=== PATIENT | male | born 1965 | race Caucasian/White ===

== ENCOUNTER 2024-03-02 10:38 | Observation (INO) | payer OTHER ==
--- NOTE | 2024-03-02 11:11 | ED ---
General Adult HPI - General Chief complaint: Syncope Stated complaint: Fall/Face injury/lac Time Seen by Provider: 03/02/24 10:40 Source: patient Mode of arrival: EMS Limitations: no limitations - History of Present Illness Initial comments: Dictation was produced using [employer] dictation software. please excuse any grammatical, word or spelling errors. Chief Complaint: 58-year-old male with syncope and fall History of Present Illness: Patient 58-year-old male he has been having significant coughing for the last few days. Patient states that he sat up on the side of the bed when he started coughing profusely. Shortly after he wakes up on the floor. at the bedside states that he passed out for several seconds. He was alert immediately after the syncopal event. Patient complaining of some mild facial and neck pain. Patient does not take any anticoagulation medications. He allegedly has cardiac history where he had to see pick pulling machine tender after what he describes as complications from COVID-19 vaccine. The ROS documented in this emergency department record has been reviewed and confirmed by me. Those systems with pertinent positive or negative responses have been documented in the HPI. All other systems are other negative and/or noncontributory. - Related Data Allergies Allergy/AdvReac Type Severity Reaction Status Date / Time No Known Allergies Allergy Verified 03/02/24 10:44 Review of Systems ROS Statement: Those systems with pertinent positive or pertinent negative responses have been documented in the HPI. ROS Other: All systems not noted in ROS Statement are negative. Past Medical History Past Medical History: Hyperlipidemia, Hypertension History of Any Multi-Drug Resistant Organisms: None Reported Additional Past Surgical History / Comment(s): Jaw Past Psychological History: No Psychological Hx Reported Smoking Status: Never smoker Past Alcohol Use History: Occasional Past Drug Use History: None Reported General Exam - General Exam Comments Initial Comments: PHYSICAL EXAM: General Impression: Alert and oriented x3, not in acute distress HEENT: Abrasions to the face and nose, extra-ocular movements intact, pupils equal and reactive to light bilaterally, mucous membranes moist. Cardiovascular: Heart regular rate and rhythm Chest: Able to complete full sentences, no retractions, no tachypnea Abdomen: abdomen soft, non-tender, non-distended, no organomegaly Musculoskeletal: Pulses present and equal in all extremities, no peripheral edema Motor: no focal deficits noted Neurological: CN II-XII grossly intact, no focal motor or sensory deficits noted Skin: Intact with no visualized rashes Psych: Normal affect and mood Limitations: no limitations Course Vital Signs 03/02/24 03/02/24 03/02/24 10:40 12:00 13:00 Temperature 98 F 97.6 F Pulse Rate 64 66 73 Respiratory 20 18 18 Rate Blood Pressure 153/98 154/88 122/86 O2 Sat by Pulse 97 98 97 Oximetry 03/02/24 13:35 Temperature Pulse Rate 72 Respiratory 18 Rate Blood Pressure 149/93 O2 Sat by Pulse 97 Oximetry EKG Findings - EKG Comments: EKG Findings:: My EKG interpretation: Ventricular rate 65, sinus rhythm,. 171, QRS 99, QTc 447. No VT prolongation, no QTC prolongation, no ST or T-wave changes noted. E Overall, this EKG is unremarkable Medical Decision Making - Medical Decision Making Was pt. sent in by a medical professional or institution (, PA, SHOWER ATTENDANT, urgent care, hospital, or residential...) When possible be specific @ -No Did you speak to anyone other than the patient for history (EMS, parent, family, police, friend...)? What history was obtained from this source @ -Some history obtained from at the bedside as described above Did you review nursing and triage notes (agree or disagree)? Why? @ -I reviewed and agree with nursing and triage notes Were old charts reviewed (outside hosp., previous admission, EMS record, old EKG, old radiological studies, urgent care reports/EKG's, residential records)? Report findings @ -No old charts were reviewed Differential Diagnosis (chest pain, altered mental status, abdominal pain women, abdominal pain men, vaginal bleeding, musculoskeletal, weakness, fever, dyspnea, syncope, headache, dizziness, GI bleed, back pain, seizure, CVA, palpatations, mental health)? @ -Differential Syncope: Valvular disease, hypertrophic cardiomyopathy, pulmonary embolism, tamponade, tachycardia, bradycardia, DE, hypovolemia, hemorrhage, dissection, anemia, intracranial hemorrhage, seizure, hypoglycemia, carbon monoxide poisoning, this is not meant to be an all-inclusive list. EKG interpreted by me (3pts min.). @ -See above X-rays interpreted by me (1pt min.). @ -Chest x-ray shows no acute processes CT interpreted by me (1pt min.). @ -CT face shows fractured nasal bones. CT head shows no acute processes. CT cervical spine shows anterior and inferior endplate fractures of C6 vertebral body U/S interpreted by me (1pt. min.). @ -None done What testing was considered but not performed or refused? (CT, X-rays, U/S, labs)? Why? @ -None What meds were considered but not given or refused? Why? @ -None Was smoking cessation discussed for >3mins.? @ -No Were there social determinants of health that impacted care today? How? (Homeles sness, low income, unemployed, alcoholism, drug addiction, transportation, low edu. Level, literacy, decrease access to med. care, detention, rehab)? @ -No Was there de-escalation of care discussed even if they declined (Discuss DNR or withdrawal of care, Hospice)? DNR status @ -No What co-morbidities impacted this encounter? (DM, HTN, Smoking, COPD, CAD, Cancer, CVA, ARF, Chemo, Hep., AIDS, mental health diagnosis, sleep apnea, morbid obesity)? @ -None Was patient admitted / discharged? Hospital course, mention meds given and route, prescriptions, significant lab abnormalities, going to OR and other pertinent info. @ -58-year-old male presents to the emergency department after multiple synco pal episodes. He has been having URI type symptoms for the last week. Vital signs upon arrival shows findings within acceptable limits he is afebrile. No obvious cardiac abnormalities for the patient patient seems to have syncopal episodes after coughing. Laboratory evaluation is unremarkable. CBC, coag panel metabolic panel is unremarkable. Viral testing shows flu a positive. Patient outside the window for Tamiflu administration due to symptoms for approximately 7 days. Imaging studies obtained showing vertebral fracture. Case discussed with Dr. Peterson recommends [place] J collar. Patient be admitted for syncope. Orthopedic surgery been consulted. Did you discuss the management of the patient with other professionals (professionals i.e. , PA, SHOWER ATTENDANT, lab, RT, psych nurse, director of social services, ag equipment field service technician, teacher, national insurance officer, machine adjuster leader case trim)? Give summary @ -See above. Case discussed with hospitalist for admission Was critical care preformed (if so, how long)? @ -No Undiagnosed new problem with uncertain prognosis? @ -No Drug Therapy requiring intensive monitoring for toxicity (Heparin, Nitro, Insulin, Cardizem)? @ -No Were any procedures done? @ -No Diagnosis/symptom? Acute, or Chronic, or Acute on Chronic? Uncomplicated (without systemic symptoms) or Complicated (systemic symptoms)? @ -Syncope, cervical fracture Side effects of treatment? @ -No Exacerbation, Progression, or Severe Exacerbation? @ -No Poses a threat to life or bodily function? How? (Chest pain, USA, DE, pneumonia, PE, COPD, DKA, ARF, appy, cholecystitis, CVA, Diverticulitis, Homicidal, Suici mik, threat to staff... and all critical care pts) @ -yes - Lab Data Result diagrams: 03/02/24 11:23 03/02/24 11:23 Lab Results 03/02/24 03/02/24 03/02/24 Range/Units 11:23 11:23 11:23 WBC 8.5 (3.8-10.6) k/uL RBC 5.13 (4.30-5.90) m/uL Hgb 15.1 (13.0-17.5) gm/dL Hct 44.7 (39.0-53.0) % MCV 87.2 (80.0-100.0) fL MCH 29.5 (25.0-35.0) pg MCHC 33.8 (31.0-37.0) g/dL RDW 13.2 (11.5-15.5) % Plt Count 141 L (150-450) k/uL MPV 9.3 Neutrophils % 85 % Lymphocytes % 9 % Monocytes % 3 % Eosinophils % 2 % Basophils % 0 % Neutrophils # 7.2 (1.3-7.7) k/uL Lymphocytes # 0.8 L (1.0-4.8) k/uL Monocytes # 0.3 (0-1.0) k/uL Eosinophils # 0.1 (0-0.7) k/uL Basophils # 0.0 (0-0.2) k/uL PT 11.9 (10.0-12.5) sec INR 1.1 (<1.2) APTT 22.1 (22.0-30.0) sec Sodium 139 (137-145) mmol/L Potassium 4.3 (3.5-5.1) mmol/L Chloride 104 (98-107) mmol/L Carbon Dioxide 31 H (22-30) mmol/L Anion Gap 4 mmol/L BUN 19 (9-20) mg/dL Creatinine 1.10 (0.66-1.25) mg/dL Est GFR (CKD-EPI)AfAm 84 (>60 ml/min/1.73 sqM) Est GFR (CKD-EPI)NonAf 73 (>60 ml/min/1.73 sqM) Glucose 112 H (74-99) mg/dL Plasma Lactic Acid Bill (0.7-2.0) mmol/L Calcium 8.3 L (8.4-10.2) mg/dL Magnesium 2.2 (1.6-2.3) mg/dL Total Bilirubin 0.6 (0.2-1.3) mg/dL AST 33 (17-59) U/L ALT 47 (4-49) U/L Alkaline Phosphatase 75 (38-126) U/L Troponin I (0.000-0.034) ng/mL Total Protein 6.4 (6.3-8.2) g/dL Albumin 4.1 (3.5-5.0) g/dL Influenza Type A (PCR) (Not Detectd) Influenza Type B (PCR) (Not Detectd) RSV (PCR) (Not Detectd) SARS-CoV-2 (PCR) (Not Detectd) 03/02/24 03/02/24 03/02/24 Range/Units 11:23 11:23 12:15 WBC (3.8-10.6) k/uL RBC (4.30-5.90) m/uL Hgb (13.0-17.5) gm/dL Hct (39.0-53.0) % MCV (80.0-100.0) fL MCH (25.0-35.0) pg MCHC (31.0-37.0) g/dL RDW (11.5-15.5) % Plt Count (150-450) k/uL MPV Neutrophils % % Lymphocytes % % Monocytes % % Eosinophils % % Basophils % % Neutrophils # (1.3-7.7) k/uL Lymphocytes # (1.0-4.8) k/uL Monocytes # (0-1.0) k/uL Eosinophils # (0-0.7) k/uL Basophils # (0-0.2) k/uL PT (10.0-12.5) sec INR (<1.2) APTT (22.0-30.0) sec Sodium (137-145) mmol/L Potassium (3.5-5.1) mmol/L Chloride (98-107) mmol/L Carbon Dioxide (22-30) mmol/L Anion Gap mmol/L BUN (9-20) mg/dL Creatinine (0.66-1.25) mg/dL Est GFR (CKD-EPI)AfAm (>60 ml/min/1.73 sqM) Est GFR (CKD-EPI)NonAf (>60 ml/min/1.73 sqM) Glucose (74-99) mg/dL Plasma Lactic Acid Bill 1.4 (0.7-2.0) mmol/L Calcium (8.4-10.2) mg/dL Magnesium (1.6-2.3) mg/dL Total Bilirubin (0.2-1.3) mg/dL AST (17-59) U/L ALT (4-49) U/L Alkaline Phosphatase (38-126) U/L Troponin I <0.012 (0.000-0.034) ng/mL Total Protein (6.3-8.2) g/dL Albumin (3.5-5.0) g/dL Influenza Type A (PCR) Detected A (Not Detectd) Influenza Type B (PCR) Not Detected (Not Detectd) RSV (PCR) Not Detected (Not Detectd) SARS-CoV-2 (PCR) Not Detected (Not Detectd) Disposition Clinical Impression: Cervical spine fracture, Syncope Disposition: ADMITTED IP TO THIS [facility] Condition: Fair Referrals: Nonstaff,Physician [REFERRING] - 1-2 days Decision Time: 15:28
[2024-03-02 11:48] LABS: Basophils % (A) 0 %; Eosinophils # (A) 0.1 k/uL (0-0.7); Eosinophils % (A) 2 %; HCT 44.7 % (39.0-53.0); HGB 15.1 gm/dL (13.0-17.5); Lymphocytes # (A) 0.8 k/uL (1.0-4.8); Lymphocytes % (A) 9 %; MCH 29.5 pg (25.0-35.0); MCHC 33.8 g/dL (31.0-37.0); MCV 87.2 fL (80.0-100.0); Mean Platelet Volume 9.3; Monocytes # (A) 0.3 k/uL (0-1.0); Monocytes % (A) 3 %; Neutrophils # (A) 7.2 k/uL (1.3-7.7); Neutrophils % (A) 85 %; Platelet Count 141 k/uL (150-450); RBC 5.13 m/uL (4.30-5.90); RDW 13.2 % (11.5-15.5); WBC 8.5 k/uL (3.8-10.6)
[2024-03-02 12:03] LABS: ALT 47 U/L (4-49); AST 33 U/L (17-59); African American GFR (CKD) 84 (>60 ml/min/1.73 sqM); Albumin 4.1 g/dL (3.5-5.0); Alkaline Phosphatase 75 U/L (38-126); Anion Gap 4 mmol/L; Blood Urea Nitrogen 19 mg/dL (9-20); Calcium 8.3 mg/dL (8.4-10.2); Carbon Dioxide 31 mmol/L (22-30); Chloride 104 mmol/L (98-107); Glucose 112 mg/dL (74-99); Magnesium 2.2 mg/dL (1.6-2.3); Non-African American GFR(CKD) 73 (>60 ml/min/1.73 sqM); Potassium 4.3 mmol/L (3.5-5.1); Sodium 139 mmol/L (137-145); Total Bilirubin 0.6 mg/dL (0.2-1.3); Total Protein 6.4 g/dL (6.3-8.2)
[2024-03-02 12:04] LABS: INR 1.1 (<1.2); Partial Thromboplastin Time 22.1 sec (22.0-30.0); Prothrombin Time 11.9 sec (10.0-12.5)
--- NOTE | 2024-03-02 12:14 | CT ---
EXAMINATION TYPE: CT brain cspine wo con, CT facial bones wo con CT DLP: 749.2 (accession [id number]), 417.1 (accession [id number]) mGycm, Automated exposure control for dose reduction was used. DATE OF EXAM: 03/02/2024 12:01 PM COMPARISON: None. CLINICAL INDICATION:Male, 58 years old with history of fall; FALL, HEAD/NECK PAIN (accession [id number] ), FALL, NOSE PAIN (accession [id number]) TECHNIQUE: Brain: Multiple axial CT images of the brain were obtained without IV contrast. Cspine: Axial CT images from the skull base to the inferior aspect of T2 we obtained without intraven ous contrast. Coronal and sagittal reformatted images were also reviewed. Facial bones; axial CT images of the facial bones were obtained without contrast and soft tissue and bone windows. Coronal and sagittal reformatted images were also reviewed. FINDINGS: Brain: Extra-axial spaces: No abnormal extra-axial fluid collections. Ventricular system: Within normal limits Cerebral parenchyma: No acute intraparenchymal hemorrhage or mass effect. The meadows-white junction is well differentiated. Cerebellum: Unremarkable. Mass effect: No evidence of midline shift. Intracranial vasculature: unremarkable Soft tissues: Normal. Calvarium: No depressed skull fracture. Paranasal sinuses and mastoid air cells: Mucosal thickening of the bilateral maxillary sinuses. Visualized orbits: Orbital contents are intact. Cervical spine: Fracture: None. Osseous structures: Acute nondisplaced fracture involving the anterior inferior endplates of the C6 v ertebral body. Multilevel anterior osteophytosis. Vertebral alignment: Within normal limits. Spinal canal/Neural Foramina: Broad-based disc bulge at C3-C4 without significant effacement of the a nterior thecal sac. Broad-based disc bulge at C4-C5, C5-C6, and C6-C7 with mild effacement of the ant erior thecal sac. Facet joint uncovertebral joint arthropathy scattered throughout the cervical spine with varying degrees of neural foraminal stenosis. Neck soft tissues: Prevertebral soft tissues are within normal limits. Other: The airway is patent. The lung apices are clear. Facial Bones: Dental amalgam. Streak artifact which limits evaluation. Acute left nasal bone fracture with minimal displacement. There is surrounding soft tissue swelling with maxillary soft tissue laceration and gas . Nasal septal deviation to the right. The orbital contents are unremarkable. The temporal-mandibular joints appear symmetric. Minimal mucosal thickening in the bilateral maxillary sinuses. The remainin g paranasal sinuses are clear. IMPRESSION: 1. No acute intracranial process. 2. Acute nondisplaced fracture involving the anterior and inferior endplates at the C6 vertebral bod y. 3. Mild multilevel degenerative disc disease. 4. Acute minimally displaced left nasal bone fracture with surrounding soft tissue edema and maxilla ry soft tissue laceration. [facility], , 03/02/2024 12:11 PM
--- NOTE | 2024-03-02 12:16 | XR ---
EXAMINATION TYPE: XR pelvis AP view DATE OF EXAM: 03/02/2024 12:05 PM INDICATION: Patient age:Male; 58 years old; Reason for study: fall, syncope; PHH. COMPARISON: None TECHNIQUE: The pelvis was examined in a single projection. FINDINGS: There is no evidence of fracture or dislocation. There is no soft tissue abnormality. Pelv ic phleboliths are present. Multilevel degenerative changes of the lower spine. IMPRESSION: No acute osseous pathology. [facility], , 03/02/2024 12:13 PM
--- NOTE | 2024-03-02 12:16 | XR ---
EXAMINATION TYPE: XR chest 2V DATE OF EXAM: 03/02/2024 12:05 PM COMPARISON: None TECHNIQUE: XR chest 2V Frontal and lateral views of the chest. CLINICAL INDICATION:Male, 58 years old with history of fall, syncope; FINDINGS: Lungs/Pleura: There is no evidence of pleural effusion, focal consolidation, or pneumothorax. Pulmonary vascularity: Unremarkable. Heart/mediastinum: Cardiomediastinal silhouette is unremarkable. Musculoskeletal: No acute osseous pathology. IMPRESSION: No acute cardiopulmonary disease/process. [facility], , 03/02/2024 12:14 PM
[2024-03-02] MEDS ORDERED: ONDANSETRON 4 MG/2 ML VIAL IVP PRN (15:20)
[2024-03-02] MEDS ORDERED: NALOXONE 0.4 MG/ML 1 ML VIAL IV PRN (15:20)
[2024-03-02] MEDS: ACETAMINOPHEN TAB 325 MG TAB PO PRN (15:37)
[2024-03-02] MEDS: SODIUM CHLORIDE 0.9% 1,000 ML IV SCH (15:39)
--- NOTE | 2024-03-02 17:28 | P.HPIM ---
History of Present Illness H&P Date: 03/02/24 History of Presenting Illness: Patient is a very pleasant 58-year-old male with a past medical history of hypertension and hyperlipidemia. He presented to the emergency department with a chief complaint of syncopal episode. Patient reports he has been having coughing fits over the past week which has resulted in 2 separate syncopal episodes following coughing fit. Patient's at bedside reports this morning her sat up on the side of the bed and began coughing profusely and fell forward face planting on floor with total loss of consciousness. She reports he was out for over 30 seconds and did not awaken until being shook. She reports upon awakening he was at his baseline normal. Patient did reportedly hit nightstand/bedside table on way down to floor during this event injuring his nose, chin, and neck. Patient currently reports soreness in his nose otherwise denies any complaints including headache, lightheadedness, dizziness, changes in vision or hearing, chest pain or palpitations, shortness of breath, or experiencing any numbness/tingling/weakness/swelling in his extremities. Patient does report productive cough x 1 week. He denies fevers, chills, or any other complaints. Upon arrival to our facility, patient underwent evaluation in the emergency department. Vital signs upon arrival show blood pressure 153/98, heart rate 64, respiratory rate 20, temp 98.0 F, and SpO2 of 97% on room air. EKG completed showing normal sinus rhythm at 65 bpm with no noted T wave or ST no signs of acute ischemia recommend interpretation. CT head negative for acute intracranial process. CT cervical spine showed acute nondisplaced fracture involving the anterior and inferior endplates of C6 vertebral body. CT face showing acute minimally displaced left nasal bone fracture with surrounding soft tissue edema and maxillary soft tissue laceration. Chest X-ray negative for acute cardiopulmonary process. Pelvis x-ray negative for acute process. Labs completed and reviewed. CBC showing thrombocytopenia with platelet count of 141 otherwise normal findings. Coagulation profile normal findings. BMP showing hypercarbia with bicarb of 31 otherwise normal findings. Blood glucose 112. Lactic acid 1.4. Liver profile unremarkable. Troponin was negative at less than 0.012. Cepheid 4 Plex panel was positive for influenza A. Review of systems: Pertinent positives and negatives as discussed in HPI, a complete review of systems was performed and all other systems are negative. Physical exam: Vital signs reviewed and stable. General: Nontoxic, no distress and appears stated age. Derm: Skin warm and dry, normal coloration for ethnicity. Head: Normocephalic and symmetric. Patient with moderate swelling to nasal bridge accompanied by bruising and abrasion/laceration to nasal bridge. No active bleeding noted. Hard c-collar in place. Eyes: EOM's intact, no lid lag, and anicteric sclera Mouth: no lip lesions, mucus membranes moist Cardiovascular: regular rate and rhythm with normal S1S2, no murmur, positive posterior tibial pulses bilaterally, and cap refill < 2 seconds. Lungs: Respirations even, regular, and unlabored on room air. Lungs CTA bilaterally, no rhonchi, no rales, no wheezing, and no accessory muscle usage. Abdominal: soft, nontender to palpation, no guarding, no appreciable organomegaly Ext: ROM intact. No gross muscle atrophy, no edema, no contractures Neuro: Speech clear, face symmetrical and CN II-XII grossly intact with no noted focal neuro deficits Psych: Alert and oriented to person, place, time, and situation. Appropriate and pleasant affect. Assessment and Plan of Care: Recurrent syncopal episodes, likely vasovagal event Acute nondisplaced fracture of C6 vertebral body Minimally displaced nasal bone fracture Influenza A -Cardiology consulted, appreciate recommendations -Orthopedic surgeon consulted, appreciate recommendations. -Maintain C-spine precautions. Fall Precautions in place. Neurochecks every 4 hours. -Telemetry monitoring -Symptomatic care and pain management -Orthostatic vitals to be obtained -Patient started on prophylactic antibiotics with Unasyn secondary to displaced nasal bone fracture. Patient will need to follow-up outpatient with ENT in 1 week. -Order placed for Tdap. Hypertension -Continue daily medication regimen with losartan 25 mg daily and hydrochl orothiazide 25 mg daily. Hyperlipidemia -Continue daily medication regimen with atorvastatin 10 mg nightly. Data and imaging reviewed: As stated above in HPI The patient is admitted with an anticipated greater than 2 midnight stay for evaluation of syncopal episode resulting in fractured C6 vertebral body and minimally displaced nasal bone fracture CODE STATUS: Full Code DVT prophylaxis: SCDs Anticipated discharge date: Pending clinical course Anticipated discharge place: Home Patient was seen independently by Nurse Practitioner. This document was prepared using [employer] dictation software. Please allow for errors in lever tender while rare they do occur. Jamil Rodas NP rendered care for this patient independently, reviewed the findings and plan as documented in the note above and agree with plan. I did not physically speak with or examine the patient on this date. Past Medical History Past Medical History: Hyperlipidemia, Hypertension History of Any Multi-Drug Resistant Organisms: None Reported Additional Past Surgical History / Comment(s): Jaw Past Psychological History: No Psychological Hx Reported Smoking Status: Never smoker Past Alcohol Use History: Occasional Past Drug Use History: None Reported Medications and Allergies Home Medications Medication Instructions Recorded Confirmed Type Aspirin EC [Ecotrin Low Dose] 81 mg PO DAILY 03/02/24 03/02/24 History Atorvastatin [Lipitor] 10 mg PO HS 03/02/24 03/02/24 History Losartan [Cozaar] 25 mg PO DAILY 03/02/24 03/02/24 History hydroCHLOROthiazide [Hydrodiuril] 25 mg PO DAILY 03/02/24 03/02/24 History Allergies Allergy/AdvReac Type Severity Reaction Status Date / Time No Known Allergies Allergy Verified 03/02/24 15:59 Physical Exam Vitals: Vital Signs Temp Pulse Resp BP Pulse Ox 03/02/24 13:35 72 18 149/93 97 03/02/24 13:00 73 18 122/86 97 03/02/24 12:00 97.6 F 66 18 154/88 98 03/02/24 10:40 98 F 64 20 153/98 97 Intake and Output 03/02/24 03/02/24 03/02/24 06:59 14:59 22:59 Other: Weight 95.254 kg Results CBC & Chem 7: 03/02/24 11:23 03/02/24 11:23 Labs: Abnormal Lab Results - Last 24 Hours (Table) 03/02/24 03/02/24 03/02/24 Range/Units 11:23 11:23 12:15 Plt Count 141 L (150-450) k/uL Lymphocytes # 0.8 L (1.0-4.8) k/uL Carbon Dioxide 31 H (22-30) mmol/L Glucose 112 H (74-99) mg/dL Calcium 8.3 L (8.4-10.2) mg/dL Influenza Type A (PCR) Detected A (Not Detectd)
[2024-03-02] MEDS ORDERED: guaiFENesin-Coden 100-10MG/5ML 10 ML CUP PO PRN (18:43)
[2024-03-02] MEDS ORDERED: HYDROcodone/APAP 5-325MG 1 EACH TAB PO PRN (18:43)
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
[2024-03-02] MEDS: DIPH,PERTUS(ACELL)TETVAC-LF 0.5 ML VIAL IM ONE (19:44)
[2024-03-02] MEDS: AMPICILLIN-SULBACTAM 3 GM in SODIUM CHLORIDE 0.9% 100 ML IVPB SCH (19:48)
[2024-03-02] MEDS: ATORVASTATIN 10 MG TAB PO SCH (20:21)
[2024-03-02] MEDS: BENZONATATE 100 MG CAP PO SCH (21:46)
[2024-03-03 06:38] LABS: HCT 41.5 % (39.0-53.0); HGB 14.1 gm/dL (13.0-17.5); MCH 29.6 pg (25.0-35.0); MCHC 34.1 g/dL (31.0-37.0); MCV 86.9 fL (80.0-100.0); Mean Platelet Volume 8.9; Platelet Count 162 k/uL (150-450); RBC 4.78 m/uL (4.30-5.90); RDW 13.3 % (11.5-15.5)
[2024-03-03 07:01] LABS: ALT 52 U/L (4-49); AST 38 U/L (17-59); African American GFR (CKD) >90 (>60 ml/min/1.73 sqM); Albumin 4.1 g/dL (3.5-5.0); Alkaline Phosphatase 76 U/L (38-126); Anion Gap 6 mmol/L; Blood Urea Nitrogen 22 mg/dL (9-20); Calcium 8.4 mg/dL (8.4-10.2); Carbon Dioxide 24 mmol/L (22-30); Chloride 107 mmol/L (98-107); Glucose 127 mg/dL (74-99); Magnesium 2.1 mg/dL (1.6-2.3); Non-African American GFR(CKD) 80 (>60 ml/min/1.73 sqM); Potassium 3.7 mmol/L (3.5-5.1); Sodium 137 mmol/L (137-145); Total Protein 6.4 g/dL (6.3-8.2)
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
[2024-03-03 08:10] VITALS: PULSE 78; RESP 16
[2024-03-03] MEDS: ASPIRIN 81 MG PO SCH (08:54)
[2024-03-03] MEDS: LOSARTAN 25 MG TAB PO SCH (08:54)
[2024-03-03] MEDS: hydroCHLOROthiazide 25 MG TAB PO SCH (08:54)
[2024-03-03] MEDS ORDERED: ENOXAPARIN 40 MG/0.4 ML SYRINGE SQ SCH (09:00)
--- NOTE | 2024-03-03 11:33 | CA ---
Transthoracic Echo Report Name: Maykel Pierce Age: 58 Gender: M : 1965 Exam Date: 03/03/2024 10:30 Exam Location: [facility] Ht (in): 69 Wt (lb): 210 Ordering Physician: Holley Ariza Attending/Referring Phys: [id number], To Biomass Technician Lakesha Charles, BERNARD Procedure CPT: Indications: LVF Cardiac Hx: Technical Quality: Fair Contrast 1: Total Dose (mL): Contrast 2: Total Dose (mL): MEASUREMENTS (Male / Female) Normal Values 2D ECHO LV Diastolic Diameter PLAX 4.7 cm 4.2 - 5.9 / 3.9 - 5.3 cm LV Systolic Diameter PLAX 3.0 cm IVS Diastolic Thickness 0.9 cm 0.6 - 1.0 / 0.6 - 0.9 cm LVPW Diastolic Thickness 0.9 cm 0.6 - 1.0 / 0.6 - 0.9 cm LV Relative Wall Thickness 0.4 RV Internal Dim ED PLAX 0.9 cm LA Systolic Diameter LX 4.0 cm 3.0 - 4.0 / 2.7 - 3.8 cm LV Diastolic Volume MOD BP 32.4 cm??? 67 - 155 / 56 - 104 cm??? LV Systolic Volume MOD BP 10.9 cm??? - 58 / 19 - 49 cm??? LV Ejection Fraction MOD BP 66.4 % >= 55 % LV Cardiac Index MOD BP 729.3 cm???/min???m??? LV Diastolic Volume MOD 4C 36.5 cm??? LV Systolic Volume MOD 4C 11.5 cm??? LV Ejection Fraction MOD 4C 68.4 % LV Cardiac Index MOD 4C 848.4 cm???/min???m??? LV Diastolic Length 4C 6.7 cm LV Systolic Length 4C 6.5 cm LV Diastolic Volume MOD 2C 25.9 cm??? LV Systolic Volume MOD 2C 9.1 cm??? LV Ejection Fraction MOD 2C 64.9 % LV Cardiac Index MOD 2C 570.9 cm???/min???m??? LV Diastolic Length 2C 6.0 cm LV Systolic Length 2C 5.6 cm LA Volume 31.1 cm??? 18 - 58 / 22 - 52 cm??? LA Volume Index 14.3 cm???/m??? 16 - 28 cm???/m??? M-MODE Aortic Root Diameter MM 3.9 cm LA Systolic Diameter MM 2.8 cm LA Ao Ratio MM 0.7 AV Cusp Separation MM 2.0 cm DOPPLER MV Area PHT 2.5 cm??? Mitral E Point Velocity 57.2 cm/s Mitral A Point Velocity 75.0 cm/s Mitral E to A Ratio 0.8 MV Deceleration Time 303.5 ms FINDINGS Left Ventricle Left ventricular ejection fraction is estimated at 60-65%. Normal left ventricular systolic function with no obvious regional wall motion abnormalities. Left ventricular cavity size normal. Left ventricular wall thickness normal. Right Ventricle Normal right ventricular size and function. Unable to estimate the right ventricular systolic pressure. Right Atrium Normal right atrial size. Left Atrium Normal left atrial size. Mitral Valve Structurally normal mitral valve. No mitral stenosis. Mild mitral regurgitation. Aortic Valve Trileaflet aortic valve. No aortic stenosis. No aortic regurgitation. Tricuspid Valve Structurally normal tricuspid valve. Trace tricuspid regurgitation. Pulmonic Valve Structurally normal pulmonic valve. Trace pulmonic regurgitation. No pulmonic stenosis. Pericardium No pericardial or pleural effusion. Aorta Mild aortic dilatation at the level of the sinuses of valsalva (root), 3.9cm CONCLUSIONS Normal LV function Previewed by: Dr. Kervin Lopez MD (Electronically Signed) Final Date: 03 March 2024 11:32
--- NOTE | 2024-03-03 11:47 | P.PN ---
Subjective Progress Note Date: 03/03/24 Hospital Course: Patient is a very pleasant 58-year-old male with a past medical history of hypertension and hyperlipidemia. He presented to the emergency department with a chief complaint of syncopal episode. Patient reports he has been having coughing fits over the past week which has resulted in 2 separate syncopal episodes following coughing fit. Patient's at bedside reports this morning her sat up on the side of the bed and began coughing profusely and fell forward face planting on floor with total loss of consciousness. She reports he was out for over 30 seconds and did not awaken until being shook. She reports upon awakening he was at his baseline normal. Patient did reportedly hit nightstand/bedside table on way down to floor during this event injuring his nose, chin, and neck. Patient currently reports soreness in his nose otherwise denies any complaints including headache, lightheadedness, dizziness, changes in vision or hearing, chest pain or palpitations, shortness of breath, or experiencing any numbness/tingling/weakness/swelling in his extremities. Patient does report productive cough x 1 week. He denies fevers, chills, or any other complaints. Upon arrival to our facility, patient underwent evaluation in the emergency department. Vital signs upon arrival show blood pressure 153/98, heart rate 64, respiratory rate 20, temp 98.0 F, and SpO2 of 97% on room air. EKG completed showing normal sinus rhythm at 65 bpm with no noted T wave or ST no signs of acute ischemia recommend interpretation. CT head negative for acute intracranial process. CT cervical spine showed acute nondisplaced fracture involving the anterior and inferior endplates of C6 vertebral body. CT face showing acute minimally displaced left nasal bone fracture with surrounding soft tissue edema and maxillary soft tissue laceration. Chest X-ray negative for acute cardiopulmonary process. Pelvis x-ray negative for acute process. Labs completed and reviewed. CBC showing thrombocytopenia with platelet count of 141 otherwise normal findings. Coagulation profile normal findings. BMP showing hypercarbia with bicarb of 31 otherwise normal findings. Blood glucose 112. Lactic acid 1.4. Liver profile unremarkable. Troponin was negative at less than 0.012. Cepheid 4 Plex panel was positive for influenza A. Physical exam: Patient seen and fully evaluated at bedside this morning. He reports having a minimal to mild headache burning sensation to skin on nose "similar to road r jennifer". He denies having any changes in vision or hearing, dizziness, lightheadedness, chest pain, palpitations, shortness of breath, or experiencing any numbness/tingling/weakness in his extremities. Patient denies any other complaints at this time. Vital signs reviewed and stable. General: Nontoxic, no distress and appears stated age. Derm: Skin warm and dry, normal coloration for ethnicity. Head: Normocephalic and symmetric. Patient with moderate swelling to nasal bridge accompanied by bruising and abrasion/laceration to nasal bridge. No active bleeding noted. Hard c-collar in place. Eyes: EOM's intact, no lid lag, and anicteric sclera Mouth: no lip lesions, mucus membranes moist Cardiovascular: regular rate and rhythm with normal S1S2, no murmur, positive posterior tibial pulses bilaterally, and cap refill < 2 seconds. Lungs: Respirations even, regular, and unlabored on room air. Lungs CTA bilaterally, no rhonchi, no rales, no wheezing, and no accessory muscle usage. Abdominal: soft, nontender to palpation, no guarding, no appreciable organomegaly Ext: ROM intact. No gross muscle atrophy, no edema, no contractures Neuro: Speech clear, face symmetrical and CN II-XII grossly intact with no noted focal neuro deficits Psych: Alert and oriented to person, place, time, and situation. Appropriate and pleasant affect. Assessment and Plan of Care: Recurrent syncopal episodes, likely vasovagal event Acute nondisplaced fracture of C6 vertebral body Minimally displaced nasal bone fracture Influenza A -Cardiology consulted, ordered echocardiogram to be completed and awaiting additional recommendations. -Orthopedic surgeon evaluated stating no need for urgent/emergent surgical intervention recommending patient remain in hard c-collar at all times except for showering, no lifting greater than 15 pounds and to follow-up in their office in 1 week for repeat x-rays and reevaluation. -Maintain C-spine precautions. Fall Precautions in place. Neurochecks every 4 hours. -Telemetry monitoring -Symptomatic care and pain management -Orthostatic vitals to be obtained -Continue prophylactic antibiotics with Unasyn secondary to displaced nasal bone fracture and will be discharged home. Patient will need to follow-up outpatient with ENT in 1 week. -Patient received Tdap 03/02/2024. Hypertension -Continue daily medication regimen with losartan 25 mg daily and hydrochlorothiazide 25 mg daily. Hyperlipidemia -Continue daily medication regimen with atorvastatin 10 mg nightly. Data and imaging reviewed: Vital signs reviewed. Blood pressure 148/96, heart rate 78, respiratory rate 16, and SpO2 of 97% on room air. Labs completed and reviewed. CBC unremarkable. BMP showing mild prerenal azotemia with BUN of 22 otherwise normal findings. Blood glucose 127. Magnesium 2.1. Liver profile showing elevated ALT of 52 otherwise normal findings. CODE STATUS: Full Code DVT prophylaxis: SCDs Anticipated discharge date: Pending clearance from cardiology. Anticipated discharge place: Home Patient was seen independently by Nurse Practitioner. This document was prepared using [employer] dictation software. Please allow for errors in industrial education instructor while rare they do occur. Jamil Rodas NP rendered care for this patient independently, reviewed the findings and plan as documented in the note above and agree with plan. I did not physically speak with or examine the patient on this date. Objective - Vital Signs Vital signs: Vital Signs Temp 98.6 F 03/02/24 17:36 Pulse 78 03/03/24 08:06 Resp 16 03/03/24 08:06 BP 148/96 03/03/24 08:06 Pulse Ox 97 03/03/24 08:06 FiO2 Intake & Output 03/02/24 03/03/24 03/03/24 18:59 06:59 18:59 Weight 95.254 kg - Labs CBC & Chem 7: 03/03/24 06:19 03/03/24 06:19 Labs: Abnormal Lab Results - Last 24 Hours (Table) 03/02/24 03/02/24 03/02/24 Range/Units 11:23 11:23 12:15 Plt Count 141 L (150-450) k/uL Lymphocytes # 0.8 L (1.0-4.8) k/uL Carbon Dioxide 31 H (22-30) mmol/L BUN (9-20) mg/dL Glucose 112 H (74-99) mg/dL Calcium 8.3 L (8.4-10.2) mg/dL ALT (4-49) U/L Influenza Type A (PCR) Detected A (Not Detectd) 03/03/24 Range/Units 06:19 Plt Count (150-450) k/uL Lymphocytes # (1.0-4.8) k/uL Carbon Dioxide (22-30) mmol/L BUN 22 H (9-20) mg/dL Glucose 127 H (74-99) mg/dL Calcium (8.4-10.2) mg/dL ALT 52 H (4-49) U/L Influenza Type A (PCR) (Not Detectd)
--- NOTE | 2024-03-03 13:09 | P.CRDCN ---
History of Present Illness Consult date: 03/03/24 Reason for Consult (text): Syncope prob vasovagal History of present illness: This is a 66-year-old male follows with meat trimmer, Dr. Arias in [place], with past medical history of hypertension, hyperlipidemia, obstructive sleep apnea on CPAP. We have been asked to evaluate the patient for syncope. Patient gives history that a couple days ago he was coughing so hard that he passed out fell down and hit his neck and chin. Yesterday he had the same episode happened while he was sitting on his bed and fell forward. He states episodes always happen with coughing excessively. He denies having any chest pain. No fever or chills. He did have some sputum production yesterday. Patient has tested positive for influenza A. Blood pressure 148/96, heart rate 78, pulse ox 97% on room air. Patient is seen today in the emergency center waiting for a bed on the cardiac stepdown unit. Patient has been seen by orthopedics for C4 cervical fracture, C3 cervical fracture. -EKG: Sinus rhythm with poor R wave progression. -Chest x-ray: No acute process -Laboratory studies: CBC unremarkable. Electrolytes normal. BUN 22 creatinine 1.06. Troponin negative x 2. Influenza A detected. -Home cardiac medications: Aspirin 81 mg daily, atorvastatin 10 mg at bedtime, hydrochlorothiazide 25 mg daily, losartan 25 mg daily. -Echocardiogram reveals EF of 60 to 65%. Review Of Systems: At the time of my exam: CONSTITUTIONAL: Denies fever or chills. HEENT: Denies blurred vision, vision changes, or eye pain. Denies hemoptysis CARDIOVASCULAR: Denies chest pain. Denies orthopnea. Denies PND. Denies palpitations RESPIRATORY: Denies shortness of breath. GASTROINTESTINAL: Denies abdominal pain. Denies nausea or vomiting. HEMATOLOGIC: Denies bleeding disorders. GENITOURINARY: Denies any blood in urine. SKIN: Denies puritis. Denies rash. Physical examination: Gen: This is 58-year-old male in no acute distress VS: reviewed HEENT: Head is atraumatic, normocephalic. Pupils equal, round. Sclerae is anicteric. NECK: Hard c-collar in place LUNGS: Clear to auscultation. No wheezes or rhonchi. No intercostal retractions. HEART: Regular rate and rhythm. No murmur. ABDOMEN: Soft No tenderness. EXTREMITIES: No pedal edema. No calf tenderness. NEUROLOGICAL: Patient is awake, alert and oriented x3. Assessment: Syncopal episode associated with coughing most likely vasovagal Influenza A Hypertension Hyperlipidemia Obstructive sleep apnea Plan: Resume patient's home cardiac medications Would recommend follow-up with his meat trimmer for event monitor No further cardiac workup at this time and patient may follow-up with his [facility] meat trimmer in 1 to 2 weeks. Thank you kindly for this consultation. Nurse practitioner note has been reviewed, I agree with documented findings and plan of care. Patient was seen and examined. Past Medical History Past Medical History: Hyperlipidemia, Hypertension History of Any Multi-Drug Resistant Organisms: None Reported Additional Past Surgical History / Comment(s): Jaw Past Psychological History: No Psychological Hx Reported Smoking Status: Never smoker Past Alcohol Use History: Occasional Past Drug Use History: None Reported Medications and Allergies Home Medications Medication Instructions Recorded Confirmed Type Aspirin EC [Ecotrin Low Dose] 81 mg PO DAILY 03/02/24 03/02/24 History Atorvastatin [Lipitor] 10 mg PO HS 03/02/24 03/02/24 History Losartan [Cozaar] 25 mg PO DAILY 03/02/24 03/02/24 History hydroCHLOROthiazide [Hydrodiuril] 25 mg PO DAILY 03/02/24 03/02/24 History Amoxic-Pot Clav 875-125Mg 1 tab PO Q12HR 10 Days #20 tab 03/03/24 Rx [Augmentin 875-125] guaiFENesin-Coden 100-10MG/5ML 10 ml PO Q6HR PRN #280 ml 03/03/24 Rx [Robitussin AC] Allergies Allergy/AdvReac Type Severity Reaction Status Date / Time No Known Allergies Allergy Verified 03/02/24 15:59 Physical Exam Vitals: Vital Signs Temp Pulse Resp BP Pulse Ox 03/03/24 08:06 78 16 148/96 97 03/03/24 05:18 92 18 98 03/03/24 02:08 73 18 139/98 96 03/03/24 00:27 77 16 132/91 98 03/02/24 21:40 72 16 132/91 98 03/02/24 17:36 98.6 F 64 18 143/63 95 03/02/24 13:35 72 18 149/93 97 03/02/24 13:00 73 18 122/86 97 03/02/24 12:00 97.6 F 66 18 154/88 98 03/02/24 10:40 98 F 64 20 153/98 97 Results 03/03/24 06:19 03/03/24 06:19 Cardiac Enzymes 03/02/24 03/02/24 03/03/24 Range/Units 11:23 11:23 06:19 AST 33 38 (17-59) U/L Troponin I <0.012 (0.000-0.034) ng/mL Coagulation 03/02/24 Range/Units 11:23 PT 11.9 (10.0-12.5) sec APTT 22.1 (22.0-30.0) sec CBC 03/02/24 03/03/24 Range/Units 11:23 06:19 WBC 8.5 8.0 (3.8-10.6) k/uL RBC 5.13 4.78 (4.30-5.90) m/uL Hgb 15.1 14.1 (13.0-17.5) gm/dL Hct 44.7 41.5 (39.0-53.0) % Plt Count 141 L 162 (150-450) k/uL Comprehensive Metabolic Panel 03/02/24 03/03/24 Range/Units 11:23 06:19 Sodium 139 137 (137-145) mmol/L Potassium 4.3 3.7 (3.5-5.1) mmol/L Chloride 104 107 (98-107) mmol/L Carbon Dioxide 31 H 24 (22-30) mmol/L BUN 19 22 H (9-20) mg/dL Creatinine 1.10 1.02 (0.66-1.25) mg/dL Glucose 112 H 127 H (74-99) mg/dL Calcium 8.3 L 8.4 (8.4-10.2) mg/dL AST 33 38 (17-59) U/L ALT 47 52 H (4-49) U/L Alkaline Phosphatase 75 76 (38-126) U/L Total Protein 6.4 6.4 (6.3-8.2) g/dL Albumin 4.1 4.1 (3.5-5.0) g/dL Current Medications Generic Name Dose Route Start Last Admin Trade Name Freq PRN Reason Stop Dose Admin Acetaminophen 650 mg 03/02/24 15:20 03/02/24 15:37 Acetaminophen Tab 325 Mg Tab PO 650 mg Q6HR PRN Administration Mild Pain or Fever > 100.5 Hydrocodone Bitart/Acetaminophen 1 each 03/02/24 18:43 Hydrocodone/Apap 5-325mg 1 Each Tab PO Q4HR PRN Moderate Pain (Scale 4 to 6) Aspirin 81 mg 03/03/24 09:00 03/03/24 08:54 Aspirin 81 Mg PO 81 mg DAILY JAVY Administration Atorvastatin Calcium 10 mg 03/02/24 21:00 03/02/24 20:21 Atorvastatin 10 Mg Tab PO 10 mg HS JAVY Administration Benzonatate 200 mg 03/02/24 22:00 03/03/24 08:54 Benzonatate 100 Mg Cap PO 200 mg TID JAVY Administration Guaifenesin/Codeine Phosphate 10 ml 03/02/24 18:43 Guaifenesin-Coden 100-10mg/5ml 10 Ml Cup PO Q6HR PRN Cough Hydrochlorothiazide 25 mg 03/03/24 09:00 03/03/24 08:54 Hydrochlorothiazide 25 Mg Tab PO 25 mg DAILY JAVY Administration Ampicillin Sodium/Sulbactam 100 mls @ 200 mls/hr 03/02/24 19:00 03/03/24 02:13 Sodium 3 gm/ Sodium Chloride IVPB 200 mls/hr Q8H JAVY Administration Losartan Potassium 25 mg 03/03/24 09:00 03/03/24 08:54 Losartan 25 Mg Tab PO 25 mg DAILY JAVY Administration Naloxone HCl 0.2 mg 03/02/24 15:20 Naloxone 0.4 Mg/Ml 1 Ml Vial IV Q2M PRN Opioid Reversal Ondansetron HCl 4 mg 03/02/24 15:20 Ondansetron 4 Mg/2 Ml Vial IVP Q8HR PRN Nausea And Vomiting 03/03/24 06:19 03/03/24 06:19
--- NOTE | 2024-03-03 14:15 | P.DS ---
Providers Date of admission: 03/02/24 15:24 Expected date of discharge: 03/03/24 Attending physician: Sylvia Khan MD Consults: 03/02/24 14:49 Consult Physician Routine Consulting Provider: Estuardo Peterson Consult Reason/Comments: c6 fracture Do you want consulting provider notified?: Already Contacted 03/02/24 18:41 Consult Physician Routine Consulting Provider: Robert Celeste Consult Reason/Comments: syncope, likely vasovagal Do you want consulting provider notified?: Yes, Notify in am Primary care physician: Adriano Lynne MD Hospital Course: Discharge Diagnosis: Recurrent syncopal episodes, believed to be secondary to vasovagal event resulting from coughing fits. Acute nondisplaced fracture of C6 vertebral body. Patient was evaluated by orthospine surgeon instructed to wear hard c-collar at all times except while showering, avoid lifting anything greater than 15 pounds and to follow-up in their office in 1 week for repeat x-rays and reevaluation. Minimally displaced nasal bone fracture. Patient was placed on prophylactic antibiotics with Unasyn secondary to displaced nasal bone fracture and will be discharged home. Patient will need to follow-up outpatient with ENT in 1 week. Patient received Tdap 03/02/2024. Influenza A. Continue supportive care, patient discharged home with prescription for Robitussin AC to be used every 6 hours as needed for cough. Hypertension. Continue daily medication regimen with losartan 25 mg daily and hydrochlorothiazide 25 mg daily. Hyperlipidemia. Continue daily medication regimen with atorvastatin 10 mg nightly. Hospital Course: Patient is a very pleasant 58-year-old male with a past medical history of hypertension and hyperlipidemia. He presented to the emergency department with a chief complaint of syncopal episode. Patient reports he has been having coughing fits over the past week which has resulted in 2 separate syncopal episodes following coughing fit. Patient's at bedside reports this morning her sat up on the side of the bed and began coughing profusely and fell forward face planting on floor with total loss of consciousness. She reports he was out for over 30 seconds and did not awaken until being shook. She reports upon awakening he was at his baseline normal. Patient did reportedly hit nightstand/bedside table on way down to floor during this event injuring his nose, chin, and neck. Patient currently reports soreness in his nose otherwise denies any complaints including headache, lightheadedness, dizziness, changes in vision or hearing, chest pain or palpitations, shortness of breath, or experiencing any numbness/tingling/weakness/swelling in his extremities. Patient does report productive cough x 1 week. He denies fevers, chills, or any other complaints. Upon arrival to our facility, patient underwent evaluation in the emergency department. Vital signs upon arrival show blood pressure 153/98, heart rate 64, respiratory rate 20, temp 98.0 F, and SpO2 of 97% on room air. EKG completed showing normal sinus rhythm at 65 bpm with no noted T wave or ST no signs of acute ischemia recommend interpretation. CT head negative for acute intracranial process. CT cervical spine showed acute nondisplaced fracture involving the anterior and inferior endplates of C6 vertebral body. CT face showing acute minimally displaced left nasal bone fracture with surrounding soft tissue edema and maxillary soft tissue laceration. Chest X-ray negative for acute cardiopulmonary process. Pelvis x-ray negative for acute process. Labs completed and reviewed. CBC showing thrombocytopenia with platelet count of 141 otherwise normal findings. Coagulation profile normal findings. BMP showing hypercarbia with bicarb of 31 otherwise normal findings. Blood glucose 112. Lactic acid 1.4. Liver profile unremarkable. Troponin was negative at less than 0.012. Cepheid 4 Plex panel was positive for influenza A. Patient was admitted under our services with consultation to cardiology and orthopedic surgery. Echocardiogram was completed showing a preserved EF of 60-65% with no significant valvular or structural abnormalities. Patient cleared from cardiac perspective for discharge recommending outpatient follow-up with primary insulation board calender operator in 1 week to discuss their recommendations of event monitor placement. Patient was evaluated by orthospine surgeon and instructed to wear hard c-collar at all times except while showering, avoid lifting anything greater than 15 pounds and to follow-up in their office in 1 week for repeat x- rays and reevaluation. Patient received Tdap vaccination and was started on prophylactic antibiotics with Unasyn secondary to his displaced nasal bone fracture. Patient discharged home on Augmentin 875/125 mg tablets every 12 hours x 10 days. Patient instructed he will need to be evaluated by ENT in the next week. Patient is medically optimized for discharge at this time and to follow-up outpatient with PCP in 1 to 2 days, insulation board calender operator in 1 week, ENT within the next week, and orthospine surgeon in 1 week. Physical exam: Vital signs reviewed and stable. General: Nontoxic, no distress and appears stated age. Derm: Skin warm and dry, normal coloration for ethnicity. Head: Normocephalic and symmetric. Patient with moderate swelling to nasal bridge accompanied by bruising and abrasion/laceration to nasal bridge. No active bleeding noted. Hard c-collar in place. Eyes: EOM's intact, no lid lag, and anicteric sclera Mouth: no lip lesions, mucus membranes moist Cardiovascular: regular rate and rhythm with normal S1S2, no murmur, positive posterior tibial pulses bilaterally, and cap refill < 2 seconds. Lungs: Respirations even, regular, and unlabored on room air. Lungs CTA bilaterally, no rhonchi, no rales, no wheezing, and no accessory muscle usage. Abdominal: soft, nontender to palpation, no guarding, no appreciable organomegaly Ext: ROM intact. No gross muscle atrophy, no edema, no contractures Neuro: Speech clear, face symmetrical and CN II-XII grossly intact with no noted focal neuro deficits Psych: Alert and oriented to person, place, time, and situation. Appropriate and pleasant affect. A total of 38 minutes of time were spent preparing this complex discharge summary. Pt was discharged on 03/03/2024 at 2:08 PM. Patient was seen independently by Nurse Practitioner. This document was prepared using [employer] dictation software. Please allow for errors in flexboard operator while rare they do occur. Jmail Rodas NP rendered care for this patient independently, reviewed the findings and plan as documented in the note above. I did not physically speak with or examine the patient on this date. Patient Condition at Discharge: Stable Plan - Discharge Summary New Discharge Prescriptions: New guaiFENesin-Coden 100-10MG/5ML [Robitussin AC] 10 ml PO Q6HR PRN #280 ml PRN Reason: Cough Amoxic-Pot Clav 875-125Mg [Augmentin 875-125] 1 tab PO Q12HR 10 Days #20 tab Continue hydroCHLOROthiazide [Hydrodiuril] 25 mg PO DAILY Losartan [Cozaar] 25 mg PO DAILY Atorvastatin [Lipitor] 10 mg PO HS Aspirin EC [Ecotrin Low Dose] 81 mg PO DAILY Discharge Medication List Aspirin EC [Ecotrin Low Dose] 81 mg PO DAILY 03/02/24 [History] Atorvastatin [Lipitor] 10 mg PO HS 03/02/24 [History] Losartan [Cozaar] 25 mg PO DAILY 03/02/24 [History] hydroCHLOROthiazide [Hydrodiuril] 25 mg PO DAILY 03/02/24 [History] Amoxic-Pot Clav 875-125Mg [Augmentin 875-125] 1 tab PO Q12HR 10 Days #20 tab 03/03/24 [Rx] guaiFENesin-Coden 100-10MG/5ML [Robitussin AC] 10 ml PO Q6HR PRN #280 ml 03/03/24 [Rx] Follow up Appointment(s)/Referral(s): Jessica Arias [REFERRING] - 1 Week Pooja Vela NPC [Nurse Practitioner] - 1 Week King Stevens MD [STAFF PHYSICIAN] - 1 Week Nonstaff,Physician [REFERRING] - 1-2 days (Dr. Adriano Lynne) Patient Instructions/Handouts: Nasal Fracture (DC), Syncope (DC), Influenza (DC), Cervical Fracture (DC) Activity/Diet/Wound Care/Special Instructions: Activity: SPINE DC INSTRUCTIONS: Hard C collar at all times when up and about for pain control and rest. Do not need to wear while sleeping or showering. May take breaks from collar while resting in chair or watching TV. No driving in [place]. Take meds as needed for pain. Ice to shoulders and neck as needed for pain. Limit BLTP to <20lbs at this time. Diet: Heart healthy and carb consistent diet. Avoid salts, or foods with hidden salts such as canned or boxed foods and frozen dinners. Extra salt makes your heart work harder and traps the fluid in your body for longer. Special Instructions: Take all of your medications as directed and remember to keep all of your doctor's appointments and follow-up as needed. [employer] clearing him from their perspective recommending outpatient follow- up with your primary insulation board calender operator, Dr. Arias to further discuss their recommendations for event monitor. Thank you for allowing us to participate in your care, it was truly a pleasure having you for our patient!!!
[2024-03-03 15:26] VITALS: BP 125/86; TEMP 97.8
== END 2024-03-03 15:24 | disposition home or self-care (01) ==
LOC: EC 10:38 → INTOOBSV 15:24 → 3SCARD 15:24
PROVIDERS: ADMIT Internal Medicine; ATTEND Internal Medicine
DX: R55 Syncope and collapse (principal); J10.1 Influenza due to other identified influenza virus with other respiratory manifestations; S12.501A Unspecified nondisplaced fracture of sixth cervical vertebra, initial encounter for closed fracture; S02.2XXA Fracture of nasal bones, initial encounter for closed fracture; W06.XXXA Fall from bed, initial encounter; D69.6 Thrombocytopenia, unspecified; M47.812 Spondylosis without myelopathy or radiculopathy, cervical region; E78.5 Hyperlipidemia, unspecified; G47.33 Obstructive sleep apnea (adult) (pediatric); I10 Essential (primary) hypertension; Z23 Encounter for immunization; Z79.82 Long term (current) use of aspirin; Z79.899 Other long term (current) drug therapy
CPT/HCPCS: 90471; 96365; 96366; 99285; 36415; 93005; 93306; 80053 ×2; 83605; 83735 ×2; 84484 ×2; 85025; 85027; 85610; 85730; 87040; 87636; 72170; 71046; 72125; 70486; 70450; 72141; 90715; G0378 ×2; L0174; J0295 ×2